=== PATIENT | male | born 1975 | race Caucasian/White ===

== ENCOUNTER 2020-06-13 13:16 | Emergency (ER) | payer OTHER, SELFPAY ==
[~2020-06-13] VITALS: Ht 175.3 cm; Wt 68.0 kg
[2020-06-13 13:28] VITALS: Ht 175.3 cm; Wt 68.0 kg
[2020-06-13 15:00] LABS: BASOPHIL % 0.4 % (0.2-1.5); CALCIUM 9.3 mg/dL (8.5-10.1); CARBON DIOXIDE 28.1 mmol/L (21-32); CHLORIDE SERUM 102 mmol/L (98-107); CREATININE SERUM 0.9 mg/dL (0.7-1.3); GFR1 > 60 mL/min; GLUCOSE SERUM 103 mg/dL (74-106); PLATELET COUNT 244 x10^3mcL (152-348); POTASSIUM SERUM 3.9 mmol/L (3.5-5.1); RED CELL DISTRIBUTION WIDTH 13.3 % (12.1-16.2); SODIUM SERUM 140 mmol/L (136-145)
[2020-06-13 15:08] LABS: ALBUMIN 4.4 g/dL (3.4-5.0); ALKALINE PHOSPHATASE 61 U/L (46-116); ALT/SGPT 35 U/L (16-63); AST/SGOT 24 U/L (15-37); BILIRUBIN TOTAL 0.5 mg/dL (0.20-1.00); LIPASE 102 IU/L (73-393)
[2020-06-13 15:24] LABS: TOTAL PROTEIN, SERUM 8.3 g/dL (6.4-8.2)
[2020-06-13 16:48] VITALS: BP 138/76
== END 2020-06-13 16:48 | disposition home or self-care (01) ==
LOC: ED 13:16
PROVIDERS: Student in an Organized Health Care Education/Training Program
DX: B34.9 Viral infection, unspecified (principal); F17.210 Nicotine dependence, cigarettes, uncomplicated; Z20.822 Contact with and (suspected) exposure to COVID-19
CPT/HCPCS: 99406; Q0162; U0003

== ENCOUNTER 2020-06-17 10:21 | Emergency (ER) | payer OTHER ==
[~2020-06-17] VITALS: Ht 172.7 cm; Wt 75.7 kg
[2020-06-17 10:37] VITALS: Ht 172.7 cm; Wt 75.7 kg
[2020-06-17 11:22] LABS: CALCIUM 9.7 mg/dL (8.5-10.1); CARBON DIOXIDE 25.3 mmol/L (21-32); CHLORIDE SERUM 100 mmol/L (98-107); CREATININE SERUM 0.9 mg/dL (0.7-1.3); GFR1 > 60 mL/min; GLUCOSE SERUM 120 mg/dL (74-106); POTASSIUM SERUM 3.7 mmol/L (3.5-5.1); SODIUM SERUM 135 mmol/L (136-145)
[2020-06-17 11:26] LABS: ALBUMIN 4.3 g/dL (3.4-5.0); ALKALINE PHOSPHATASE 68 U/L (46-116); ALT/SGPT 40 U/L (16-63); AST/SGOT 22 U/L (15-37); BILIRUBIN TOTAL 0.5 mg/dL (0.20-1.00); LIPASE 87 IU/L (73-393); TOTAL PROTEIN, SERUM 8.2 g/dL (6.4-8.2)
[2020-06-17 11:39] LABS: BASOPHIL % 0.5 % (0.2-1.5); PLATELET COUNT 234 x10^3mcL (152-348); RED CELL DISTRIBUTION WIDTH 13.3 % (12.1-16.2)
[2020-06-17] MEDS ORDERED: ZOFRAN4 M3 SL (13:10)
[2020-06-17] MEDS ORDERED: ACID REDUCER20 MG PO (13:10)
[2020-06-17] MEDS ORDERED: NOR10T PO (13:10)
[2020-06-17 13:16] VITALS: BP 140/87
== END 2020-06-17 13:30 | disposition home or self-care (01) ==
LOC: ED 10:21
PROVIDERS: Emergency Medicine
DX: R10.9 Unspecified abdominal pain (principal); R11.2 Nausea with vomiting, unspecified
CPT/HCPCS: J2270; J2405